=== PATIENT | female | born 1965 | race Two or more races ===

== ENCOUNTER → 2018-05-23 | Outpatient (CLI) | payer OTHER ==
[2018-05-23 11:09] LABS: ABSOLUTE EOSINOPHILS # (AUTO) 0.2 10^3/uL (0.0-0.6); ABSOLUTE LYMPHOCYTES (AUTO) 2.8 10^3/uL (0.5-4.7); ABSOLUTE MONOCYTES (AUTO) 0.4 10^3/uL (0.1-1.4); ABSOLUTE NEUT (AUTO) 1.9 10^3/uL (1.7-8.2); BASOPHILS % (AUTO) 0.2 % (0-2); EOSINOPHILS % (AUTO) 4.1 % (0-6); HEMATOCRIT 39.9 % (36.0-47.0); HEMOGLOBIN 13.5 g/dL (12.0-15.5); LYMPHOCYTES % (AUTO) 52.1 % (13-45); MEAN CORPUSCULAR HEMOGLOBIN 29.7 pg (27.0-33.4); MEAN CORPUSCULAR HGB CONC 33.8 g/dL (32.0-36.0); MEAN CORPUSCULAR VOLUME 88 fl (80-97); MONOCYTES % (AUTO) 8.1 % (3-13); PLATELET COUNT 284 10^3/uL (150-450); RED BLOOD COUNT 4.55 10^6/uL (3.72-5.28); RED CELL DISTRIBUTION WIDTH 13.4 % (11.5-14.0); SEGMENTED NEUTROPHILS % (AUTO) 35.5 % (42-78); TOTAL CELLS COUNTED % (AUTO) 100 %; WHITE BLOOD COUNT 5.3 10^3/uL (4.0-10.5)
[2018-05-23 11:31] LABS: ALANINE AMINOTRANSFERASE 22 U/L (9-52); ALBUMIN 4.7 g/dL (3.5-5.0); ALKALINE PHOSPHATASE 69 U/L (38-126); ANION GAP 14 (5-19); ASPARTATE AMINO TRANSFERASE 26 U/L (14-36); BILIRUBIN,DIRECT 0.1 mg/dL (0.0-0.4); BILIRUBIN,TOTAL 0.9 mg/dL (0.2-1.3); BLOOD UREA NITROGEN 16 mg/dL (7-20); CALCIUM 10.3 mg/dL (8.4-10.2); CARBON DIOXIDE 24 mmol/L (22-30); CHLORIDE 106 mmol/L (98-107); CHOLESTEROL 212.61 mg/dL (0-200); GLUCOSE 87 mg/dL (75-110); POTASSIUM 4.6 mmol/L (3.6-5.0); SODIUM 143.9 mmol/L (137-145); TOTAL PROTEIN 8.2 g/dL (6.3-8.2); TRIGLYCERIDES 130 mg/dL (<150); URIC ACID 6.1 mg/dL (2.5-7.5)
[2018-05-23 11:43] LABS: DIRECT LDL 116 mg/dL (<100)
--- NOTE | 2018-05-23 13:06 | RADIOLOGY REPORT (SQ) ---
EXAM DESCRIPTION: KNEE BILAT AP UPRIGHT COMPLETED DATE/TIME: 05/23/2018 10:35 am REASON FOR STUDY: UNSPECIFIED INTERNAL DERANGEMENT OF RT KNEE Z00.00 ENCNTR FOR GENERAL ADULT MEDIC AL EXAM W/O ABNORMAL FI COMPARISON: None. NUMBER OF VIEWS: Two views. TECHNIQUE: AP standing bilateral knees. LIMITATIONS: None. FINDINGS: There is joint space narrowing medial compartments bilaterally. Osteophytes medial and la teral compartments. No chondrocalcinosis. IMPRESSION: Osteoarthritis. TECHNICAL DOCUMENTATION: JOB ID: [id number] [employer]- All Rights Reserved Reading location - IP/workstation name: [email or web address]
== END ==
LOC: CCC 10:04
DX: Z00.00 Encounter for general adult medical examination without abnormal findings (principal); M22.91 Unspecified disorder of patella, right knee
CPT/HCPCS: 36415; 73565; 80053; 80061; 83036; 84443; 84550; 85025